=== PATIENT | male | born 1970 | race Caucasian/White ===

== ENCOUNTER 2016-11-14 05:14 | Emergency (ER) | payer OTHER ==
[2016-11-14 07:27] LABS: BASOPHIL % 1.1 % (0-2); PLATELET COUNT 188 x10^3mcL (130-400); RED CELL DISTRIBUTION WIDTH 13.9 % (11.5-14.5)
[2016-11-14 08:49] VITALS: BP 149/105
[2016-11-14 08:50] LABS: ALBUMIN 3.7 g/dL (3.4-5.0); CALCIUM 9.3 mg/dL (8.5-10.1); CARBON DIOXIDE 32.4 mmol/L (21-32); CREATININE SERUM 1.8 mg/dL (0.7-1.3); POTASSIUM SERUM 4.3 mmol/L (3.5-5.1); TOTAL PROTEIN, SERUM 7.5 g/dL (6.4-8.2)
[2016-11-14 08:51] LABS: BILIRUBIN TOTAL 0.3 mg/dL (0.20-1.00)
== END 2016-11-14 09:00 | disposition home or self-care (01) ==
LOC: ED 05:14
PROVIDERS: Emergency Medicine
DX: N20.0 Calculus of kidney (principal)
CPT/HCPCS: 36415; J0696; J1885; J7030

== ENCOUNTER 2019-05-14 23:05 | Emergency (ER) | payer OTHER ==
[~2019-05-14] VITALS: Ht 185.4 cm; Wt 113.4 kg
[2019-05-14 23:07] VITALS: Ht 185.4 cm; Wt 113.4 kg
[2019-05-14 23:58] LABS: BASOPHIL % 0.5 % (0-2); PLATELET COUNT 202 x10^3mcL (130-400); RED CELL DISTRIBUTION WIDTH 13.6 % (11.5-14.5)
[2019-05-15 00:06] LABS: ALBUMIN 3.4 g/dL (3.4-5.0); ALKALINE PHOSPHATASE 112 U/L (46-116); ALT/SGPT 33 U/L (16-63); AST/SGOT 14 U/L (15-37); BILIRUBIN TOTAL 0.3 mg/dL (0.20-1.00); CARBON DIOXIDE 30.6 mmol/L (21-32); CHLORIDE SERUM 105 mmol/L (98-107); CREATININE SERUM 1.2 mg/dL (0.7-1.3); GFR1 > 60 mL/min; GLUCOSE SERUM 130 mg/dL (74-106); POTASSIUM SERUM 3.5 mmol/L (3.5-5.1); SODIUM SERUM 141 mmol/L (136-145); TOTAL PROTEIN, SERUM 6.9 g/dL (6.4-8.2)
[2019-05-15 00:07] LABS: UA SPECIFIC GRAVITY >=1.030 (1.005-1.035); microscopic required? YES; urine erythrocyte 3+ (NEGATIVE)
[2019-05-15 00:49] VITALS: BP 137/95
== END 2019-05-15 00:04 | disposition home or self-care (01) ==
LOC: ED 23:05
PROVIDERS: Emergency Medicine
DX: N39.0 Urinary tract infection, site not specified (principal); F17.200 Nicotine dependence, unspecified, uncomplicated; Z87.442 Personal history of urinary calculi
CPT/HCPCS: 36415; 99406; J7030

== ENCOUNTER 2020-01-04 04:01 | Emergency (ER) | payer OTHER ==
[~2020-01-04] VITALS: Ht 185.4 cm; Wt 113.4 kg
[2020-01-04 04:09] VITALS: Ht 185.4 cm; Wt 113.4 kg
[2020-01-04 06:29] VITALS: BP 149/95
== END 2020-01-04 06:29 | disposition home or self-care (01) ==
LOC: ED 04:01
DX: N20.0 Calculus of kidney (principal)
CPT/HCPCS: J2270